=== PATIENT | female | born 1995 | race African-American/Black ===

== ENCOUNTER 2021-09-28 12:07 | Emergency (ER) | payer SELFPAY ==
[~2021-09-28] VITALS: Ht 154.9 cm; Wt 57.2 kg
--- NOTE | 2021-09-28 12:20 | NUR ---
JESSICA [facility]. THE PATIENT IS ALERT AND ORIENTED X1 STATING THAT HER NAME OS LUCITA. THE PATIENT IS TALKING TO SELF, RESPONDS TO INTERNA STIMULI AMD ANXIOUSLY MOVING HER BODY. THE PATIENT DENIES SI/HI. IN ROOM AIR AND DENIES SOB. RESPIRATION REGULAR AND UNLABORED. DENIES PAIN. WILL CONTINUE TO MONITOR THE PATIENT.
[2021-09-28] MEDS ORDERED: HALOPERIDOL LACTATE INJ 5 MG/ML VIAL ONE (12:24)
[2021-09-28] MEDS ORDERED: diphenhydrAMINE HCL 50 MG/ML VIAL ONE (12:24)
[2021-09-28] MEDS ORDERED: LORAZEPAM INJ 2 MG/ML VIAL ONE (12:25)
[2021-09-28] MEDS ORDERED: diphenhydrAMINE HCL 50 MG/ML VIAL IM ONE (12:30)
[2021-09-28] MEDS ORDERED: HALOPERIDOL LACTATE INJ 5 MG/ML VIAL IM ONE (12:30)
[2021-09-28] MEDS ORDERED: LORAZEPAM INJ 2 MG/ML VIAL IM ONE (12:30)
--- NOTE | 2021-09-28 12:41 | NUR ---
URINE COLLECTED AND SENT TO THE LAB
[2021-09-28 12:54] LABS: BASOPHILS # (AUTO) 0.1 K/uL (0.0-0.2); BASOPHILS % (AUTO) 0.4 % (0.0-2.0); EOSINOPHILS % (AUTO) 0.2 % (0.0-6.0); HEMATOCRIT 34 % (33-45); HEMOGLOBIN 11.1 g/dL (11.5-14.8); LYMPHOCYTES # (AUTO) 2.7 K/uL (0.8-4.8); LYMPHOCYTES % (AUTO) 18.5 % (20.0-44.0); MEAN CORPUSCULAR HGB CONC 33 g/dl (31.0-36.0); MEAN CORPUSCULAR VOLUME 85 fL (82-100); MONOCYTES # (AUTO) 1.4 K/uL (0.1-1.30); MONOCYTES % (AUTO) 9.4 % (2.0-12.0); NEUTROPHILS # (AUTO) 10.4 K/uL (1.8-8.9); NEUTROPHILS % (AUTO) 71.5 % (43.0-81.0); PLATELET COUNT (AUTO) 317 K/uL (150-450); RED BLOOD CELL COUNT(AUTO) 4.01 MIL/uL (4.0-5.2); WHITE BLOOD COUNT (AUTO) 14.5 K/uL (4.3-11.0)
[2021-09-28 13:04] LABS: CALCIUM, SERUM 8.8 mg/dL (8.5-10.1); CARBON DIOXIDE 27 mmol/L (21-32); CHLORIDE 102 mmol/L (98-107); CREATININE 0.8 mg/dL (0.6-1.3); GLUCOSE 84 mg/dL (74-106); POTASSIUM 3.5 mmol/L (3.5-5.1); SODIUM SERUM 138 mmol/L (136-145); UREA NITROGEN, BLOOD 8 mg/dL (7-18)
[2021-09-28 13:10] LABS: BILIRUBIN,URINE SMALL (NEGATIVE); COLOR,URINE ORANGE (YELLOW); NITRITE, URINE NEGATIVE (NEGATIVE); PROTEIN,URINE 30 mg/dl (NEGATIVE); UGLUCOSE NEGATIVE (NEGATIVE)
--- NOTE | 2021-09-28 13:22 | NUR ---
THE PATIENT IS SLEEPING IN ER BED #15. RESPONSIVE TO VERBAL STIMULI. BREATHING EVEN AND UNLABORED. WILL CONTINUE TO MONITOR THE PATIENT.
[2021-09-28 15:52] LABS: ALANINE AMINOTRANSFERASE 28 U/L (12-78); ALBUMIN 3.1 g/dL (3.4-5.0); ALCOHOL, BLOOD < 3 mg/dL (0-0); ALKALINE PHOSPHATASE 70 U/L (46-116); ASPARTATE AMINOTRANSFERASE 43 U/L (15-37); BILIRUBIN,DIRECT 0.2 mg/dL (0.0-0.2); BILIRUBIN,TOTAL 0.7 mg/dL (0.2-1.0); TOTAL PROTEIN, SERUM 7.8 g/dL (6.4-8.2)
[2021-09-28 16:01] LABS: ACETAMINOPHEN < 10 ug/ml (10-30)
[2021-09-28 17:34] LABS: LEUKOCYTE ESTERASE ,URINE TRACE (NEGATIVE)
[2021-09-28 17:37] LABS: BACTERIA,URINE 1+ /HPF (None Seen); RBC,URINE NONE SEEN /HPF (0-2); SQUAMOUS EPITHELIAL CELL,UR Moderate /HPF (None Seen)
--- NOTE | 2021-09-28 18:56 | NUR ---
THE PATIENT IS SLEEPING IN ER BED #15. EASILY RESPONSIVE TO VERBAL STIMULI. BREATHING EVEN AND UNLABORED. WILL CONTINUE TO MONITOR THE PATIENT.
--- NOTE | 2021-09-29 05:27 | NUR ---
Patient discharged to home in stable condition. Written and verbal after care instructions given. Patient verbalizes understanding of instruction.
[2021-09-29 05:28] VITALS: BP 135/88
== END 2021-09-29 05:28 | disposition home or self-care (01) ==
LOC: EDBD 12:07 → ER 12:07
DX: F19.129 Other psychoactive substance abuse with intoxication, unspecified (principal)
CPT/HCPCS: 36415; 80048; 80076; 80143; 80307; 80320; 81001; 84703; 85025; 87086; 96372 ×2; 99284; J1200; J1630; J2060; G0480